=== PATIENT | male | born 1935 | race Asian ===

== ENCOUNTER 2018-11-07 11:22 | Emergency (ER) | payer MEDICARE, OTHER ==
[2018-11-07 16:44] LABS: ADD MAN DIFF? NO
[2018-11-07 16:46] LABS: BASOPHILS % 0.3 % (0.0-2.0); EOSINOPHILS # 0.3 10^3/ul (0.0-0.5); HEMOGLOBIN 9.4 g/dl (14.0-18.0); LYMPHOCYTES # 1.4 10^3/ul (0.8-2.9); LYMPHOCYTES % 21.4 % (15.0-51.0); MEAN CORPUSCULAR HEMOGLOBIN 30.1 pg (29.0-33.0); MEAN CORPUSCULAR HGB CONC 32.4 g/dl (32.0-37.0); MEAN CORPUSCULAR VOLUME 92.9 fl (82.0-101.0); MEAN PLATELET VOLUME 9.3 fl (7.4-10.4); MONOCYTE # 0.4 10^3/ul (0.3-0.9); MONOCYTES % 6.3 % (0.0-11.0); NEUTROPHIL # 4.4 10^3/ul (1.6-7.5); NEUTROPHILS % 67.5 % (39.0-77.0); PLATELET COUNT 172 10^3/UL (140-415); RED BLOOD COUNT 3.12 10^6/ul (4.70-6.10)
[2018-11-07 16:46] LABS: WHITE BLOOD COUNT 6.5 10^3/ul (4.8-10.8)
[2018-11-07 17:05] LABS: ANION GAP 6 (5-13); BLOOD UREA NITROGEN 47 mg/dl (7-20); CALCIUM 8.4 mg/dl (8.4-10.2); CARBON DIOXIDE 20 mmol/L (21-31); CHLORIDE 113 mmol/L (97-110); CREATININE 2.66 mg/dl (0.61-1.24); GLUCOSE 201 mg/dl (70-220); POTASSIUM 4.2 mmol/L (3.5-5.1); SODIUM 139 mmol/L (135-144)
[2018-11-07 17:13] LABS: INR 0.95; PARTIAL THROMBOPLASTIN TIME 30.7 Sec (23.0-35.0); PROTIME 12.8 Sec (11.9-14.9)
[2018-11-07] MEDS: hydrALAzine 20 MG INJ IV (18:51)
[2018-11-07] MEDS: ACETAMINOPHEN 325 MG TAB PO (19:53)
== END 2018-11-07 20:47 | disposition home or self-care (01) ==
LOC: E/R 11:22
DX: S20.212A Contusion of left front wall of thorax, initial encounter (principal); I12.9 Hypertensive chronic kidney disease with stage 1 through stage 4 chronic kidney disease, or unspecified chronic kidney disease; N18.9 Chronic kidney disease, unspecified; E11.22 Type 2 diabetes mellitus with diabetic chronic kidney disease; I16.0 Hypertensive urgency; W01.198A Fall on same level from slipping, tripping and stumbling with subsequent striking against other object, initial encounter; Y92.9 Unspecified place or not applicable; Z79.4 Long term (current) use of insulin
CPT/HCPCS: 36415; 70450; 71045; 80048; 85025; 85610; 85730; 96374; 99285-25

== ENCOUNTER 2018-12-08 18:45 | Inpatient (IN) | payer MEDICARE, OTHER ==
[2018-12-08 19:17] LABS: ADD MAN DIFF? NO
[2018-12-08 19:20] LABS: WHITE BLOOD COUNT 7.2 10^3/ul (4.8-10.8)
[2018-12-08 19:20] LABS: BASOPHILS % 0.3 % (0.0-2.0); EOSINOPHILS # 0.3 10^3/ul (0.0-0.5); EOSINOPHILS % 3.5 % (0.0-7.0); HEMOGLOBIN 8.9 g/dl (14.0-18.0); LYMPHOCYTES # 1.2 10^3/ul (0.8-2.9); MEAN CORPUSCULAR HEMOGLOBIN 30.5 pg (29.0-33.0); MEAN CORPUSCULAR VOLUME 92.5 fl (82.0-101.0); MONOCYTE # 0.4 10^3/ul (0.3-0.9); MONOCYTES % 5.7 % (0.0-11.0); NEUTROPHIL # 5.4 10^3/ul (1.6-7.5); NEUTROPHILS % 74.2 % (39.0-77.0); PLATELET COUNT 145 10^3/UL (140-415); RED BLOOD COUNT 2.92 10^6/ul (4.70-6.10)
[2018-12-08] MEDS: LABETALOL HCL 20MG INJ IV ×2 (19:31→20:13)
[2018-12-08 19:37] LABS: ANION GAP 5 (5-13); BLOOD UREA NITROGEN 48 mg/dl (7-20); CALCIUM 8.6 mg/dl (8.4-10.2); CARBON DIOXIDE 20 mmol/L (21-31); CHLORIDE 111 mmol/L (97-110); CHOL/HDL RATIO 4.5 RATIO; CHOLESTEROL 145 mg/dl (100-200); CREATININE 2.43 mg/dl (0.61-1.24); GLUCOSE 148 mg/dl (70-220); HDL CHOLESTEROL 32 mg/dl (31-75); LDL CHOLESTEROL,CALCULATED 81 mg/dl; POTASSIUM 3.6 mmol/L (3.5-5.1); SODIUM 136 mmol/L (135-144); TRIGLYCERIDES 162 mg/dl (0-149)
[2018-12-08 19:40] LABS: INR 0.91; PROTIME 12.4 Sec (11.9-14.9)
[2018-12-08 19:41] LABS: PARTIAL THROMBOPLASTIN TIME 29.2 Sec (23.0-35.0)
[2018-12-08 19:48] LABS: TROPONIN-I 0.088 ng/ml (0.000-0.120)
[2018-12-08 20:01] LABS: ADD UMIC YES; UR ASCORBIC ACID NEGATIVE (NEGATIVE); UR BACTERIA FEW /HPF (NONE SEEN); UR BILIRUBIN (Dip) NEGATIVE (NEGATIVE); UR BLOOD (Dip) NEGATIVE (NEGATIVE); UR CLARITY CLEAR (CLEAR); UR COLOR STRAW (YELLOW); UR GLUCOSE (Dip) 1+ mg/dL (NEGATIVE); UR KETONES (Dip) NEGATIVE (NEGATIVE); UR LEUKOCYTE ESTERASE (Dip) NEGATIVE Leu/ul (NEGATIVE); UR NITRITE (Dip) NEGATIVE (NEGATIVE); UR RBC 0 /HPF (0-5); UR SPECIFIC GRAVITY (Dip) 1.005 (1.003-1.030); UR TOTAL PROTEIN (Dip) 2+ mg/dl (NEGATIVE); UR UROBILINOGEN (Dip) NEGATIVE (NEGATIVE); UR WBC 3 /HPF (0-5)
[2018-12-08 20:18] LABS: AMPHETAMINE/METHAMPHETAMINE Negative (NEGATIVE); BARBITURATES Negative (NEGATIVE); BENZODIAZEPINES Negative (NEGATIVE); CANNABINOIDS Negative (NEGATIVE); COCAINE Negative (NEGATIVE); OPIATES Negative (NEGATIVE)
[2018-12-08] MEDS ORDERED: ACETAMINOPHEN 325 MG TAB PO (20:30)
[2018-12-08] MEDS ORDERED: ONDANSETRON 4 MG INJ IV (20:30)
[2018-12-08] MEDS: niCARdipine-NS 0.1MG/ML DRIP 200 ML IV (21:14)
[2018-12-09] MEDS ORDERED: MAGNESIUM HYDROXIDE 30ML CUP PO (02:30)
[2018-12-09] MEDS ORDERED: ACETAMINOPHEN 650 MG SUPP PR (02:30)
[2018-12-09] MEDS ORDERED: NACL 0.9% 3 ML SYG IV (02:30)
[2018-12-09] MEDS ORDERED: DOCUSATE SODIUM 100 MG CAP PO (02:30)
[2018-12-09] MEDS: ACETAMINOPHEN 325 MG TAB PO ×2 (03:30→09:00)
[2018-12-09] MEDS: SERTRALINE 50 MG TAB PO (09:51)
[2018-12-09] MEDS: LABETALOL 100 MG TAB PO ×2 (09:52→20:41)
[2018-12-09] MEDS: AMLODIPINE 10 MG TAB PO (09:53)
[2018-12-09] MEDS: HYDROCHLOROTHIAZIDE 25 MG TAB PO (09:53)
[2018-12-09] MEDS ORDERED: FUROSEMIDE 40 MG INJ IV (11:00)
[2018-12-09] MEDS ORDERED: ENOXAPARIN 40 MG/0.4 ML SYG SC (11:00)
[2018-12-09] MEDS ORDERED: HEPARIN 5,000 UNIT/1 ML VIAL SC (11:15)
[2018-12-09] MEDS ORDERED: GLUCOSE GEL 15 GRAM TUBE BUCCAL (12:00)
[2018-12-09] MEDS ORDERED: DEXTROSE 50% 50 ML SYRINGE IV ×2 (12:00)
[2018-12-09] MEDS ORDERED: GLUCAGON 1 MG INJ IM (12:00)
[2018-12-09] MEDS ORDERED: GLUCOSE GEL 15 GRAM TUBE PO ×2 (12:00)
[2018-12-09] MEDS: niCARdipine-NS 0.1MG/ML DRIP 200 ML IV ×2 (12:23→20:26)
[2018-12-09] MEDS: POTASSIUM CHLORIDE 20 MEQ POWDER FOR ORAL SOLN PO ×2 (12:29→20:41)
[2018-12-09] MEDS: INSULIN ASPART [NOVOLOG] 3 ML PEN SC ×3 (12:34→20:31)
[2018-12-09] MEDS: FUROSEMIDE 40 MG INJ IV (17:51)
[2018-12-09] MEDS: ATORVASTATIN 20 MG TAB PO (20:41)
[2018-12-09] MEDS: HEPARIN 5,000 UNIT/1 ML VIAL SC (20:44)
[2018-12-10] MEDS: ACCUCHECK AT 2AM (Patients on SS coverage) XX (02:00)
[2018-12-10 05:01] LABS: ADD MAN DIFF? NO
[2018-12-10 05:15] LABS: WHITE BLOOD COUNT 6.9 10^3/ul (4.8-10.8)
[2018-12-10 05:15] LABS: BASOPHILS % 0.3 % (0.0-2.0); EOSINOPHILS # 0.4 10^3/ul (0.0-0.5); EOSINOPHILS % 6.4 % (0.0-7.0); HEMATOCRIT 24.1 % (37.0-47.0); HEMOGLOBIN 8.1 g/dl (12.0-16.0); LYMPHOCYTES # 1.4 10^3/ul (0.8-2.9); MEAN CORPUSCULAR HEMOGLOBIN 30.5 pg (29.0-33.0); MEAN CORPUSCULAR HGB CONC 33.6 g/dl (32.0-37.0); MEAN CORPUSCULAR VOLUME 90.6 fl (82.0-101.0); MEAN PLATELET VOLUME 10.1 fl (7.4-10.4); MONOCYTE # 0.5 10^3/ul (0.3-0.9); MONOCYTES % 7.4 % (0.0-11.0); NEUTROPHIL # 4.5 10^3/ul (1.6-7.5); NEUTROPHILS % 65.5 % (39.0-77.0); PLATELET COUNT 154 10^3/UL (140-415); RED BLOOD COUNT 2.66 10^6/ul (4.20-5.40)
[2018-12-10] MEDS: FUROSEMIDE 40 MG INJ IV ×2 (05:15→17:43)
[2018-12-10] MEDS: PANTOPRAZOLE (EC) 40 MG TAB PO (05:15)
[2018-12-10 05:40] LABS: B-TYPE NATRIURETIC PEPTIDE 5510 PG/ML (0-450)
[2018-12-10 06:24] LABS: URIC ACID 7.4 mg/dl (3.1-7.9)
[2018-12-10 06:27] LABS: ALANINE AMINOTRANSFERASE 22 IU/L (13-69); ALBUMIN 2.4 g/dl (3.3-4.9); ALBUMIN/GLOBULIN RATIO 0.88; ALKALINE PHOSPHATASE 72 IU/L (42-121); ANION GAP 6 (5-13); ASPARTATE AMINO TRANSFERASE 16 IU/L (15-46); BILIRUBIN,INDIRECT 0.4 mg/dl (0-1.1); BILIRUBIN,TOTAL 0.4 mg/dl (0.2-1.3); BLOOD UREA NITROGEN 48 mg/dl (7-20); CALCIUM 7.7 mg/dl (8.4-10.2); CARBON DIOXIDE 18 mmol/L (21-31); CHLORIDE 113 mmol/L (97-110); CREATININE 2.55 mg/dl (0.44-1.00); GLUCOSE 149 mg/dl (70-220); POTASSIUM 3.4 mmol/L (3.5-5.1); SODIUM 137 mmol/L (135-144); TOTAL PROTEIN 5.1 g/dl (6.1-8.1)
[2018-12-10] MEDS: niCARdipine-NS 0.1MG/ML DRIP 200 ML IV (07:18)
[2018-12-10] MEDS: INSULIN ASPART [NOVOLOG] 3 ML PEN SC ×3 (08:01→17:27)
[2018-12-10] MEDS: POTASSIUM CHLORIDE 20 MEQ POWDER FOR ORAL SOLN PO ×2 (08:53→20:58)
[2018-12-10] MEDS: LABETALOL 100 MG TAB PO ×2 (08:53→21:36)
[2018-12-10] MEDS: AMLODIPINE 10 MG TAB PO (08:53)
[2018-12-10] MEDS: SERTRALINE 50 MG TAB PO (08:54)
[2018-12-10] MEDS: HEPARIN 5,000 UNIT/1 ML VIAL SC ×2 (08:56→22:03)
[2018-12-10] MEDS: ACETAMINOPHEN 325 MG TAB PO (10:40)
[2018-12-10] MEDS: hydrALAzine 20 MG INJ IV ×2 (10:47→20:57)
[2018-12-10 18:33] LABS: COLLECTION PERIOD 24 hrs
[2018-12-10 19:52] LABS: VOLUME 3500 mls
[2018-12-10] MEDS: ATORVASTATIN 20 MG TAB PO (20:58)
[2018-12-11] MEDS: ACCUCHECK AT 2AM (Patients on SS coverage) XX (01:12)
[2018-12-11] MEDS: INSULIN ASPART [NOVOLOG] 3 ML PEN SC ×5 (01:12→22:56)
[2018-12-11] MEDS: FUROSEMIDE 40 MG INJ IV (06:01)
[2018-12-11] MEDS: PANTOPRAZOLE (EC) 40 MG TAB PO (06:01)
[2018-12-11 06:10] LABS: ADD MAN DIFF? NO
[2018-12-11 06:21] LABS: BASOPHILS % 0.1 % (0.0-2.0); EOSINOPHILS # 0.4 10^3/ul (0.0-0.5); HEMATOCRIT 24.7 % (37.0-47.0); HEMOGLOBIN 8.1 g/dl (12.0-16.0); LYMPHOCYTES # 1.2 10^3/ul (0.8-2.9); LYMPHOCYTES % 16.8 % (15.0-51.0); MEAN CORPUSCULAR HEMOGLOBIN 30.2 pg (29.0-33.0); MEAN CORPUSCULAR HGB CONC 32.8 g/dl (32.0-37.0); MEAN CORPUSCULAR VOLUME 92.2 fl (82.0-101.0); MONOCYTE # 0.6 10^3/ul (0.3-0.9); MONOCYTES % 7.4 % (0.0-11.0); NEUTROPHIL # 5.2 10^3/ul (1.6-7.5); NEUTROPHILS % 70.4 % (39.0-77.0); PLATELET COUNT 148 10^3/UL (140-415); RED BLOOD COUNT 2.68 10^6/ul (4.20-5.40); RED CELL DISTRIBUTION WIDTH 14.4 % (11.5-14.5)
[2018-12-11 06:21] LABS: WHITE BLOOD COUNT 7.4 10^3/ul (4.8-10.8)
[2018-12-11 06:55] LABS: ANION GAP 8 (5-13); BLOOD UREA NITROGEN 51 mg/dl (7-20); CARBON DIOXIDE 17 mmol/L (21-31); CHLORIDE 112 mmol/L (97-110); GLUCOSE 137 mg/dl (70-220); POTASSIUM 3.8 mmol/L (3.5-5.1); SODIUM 137 mmol/L (135-144)
[2018-12-11 06:56] LABS: CALCIUM 7.5 mg/dl (8.4-10.2); CREATININE 2.79 mg/dl (0.44-1.00)
[2018-12-11] MEDS: AMLODIPINE 10 MG TAB PO (09:12)
[2018-12-11] MEDS: SERTRALINE 50 MG TAB PO (09:12)
[2018-12-11] MEDS: LABETALOL 100 MG TAB PO ×2 (09:12→22:43)
[2018-12-11] MEDS: POTASSIUM CHLORIDE 20 MEQ POWDER FOR ORAL SOLN PO ×2 (09:12→22:40)
[2018-12-11] MEDS: HEPARIN 5,000 UNIT/1 ML VIAL SC ×2 (09:15→22:56)
[2018-12-11] MEDS: LOSARTAN 50 MG TAB PO (12:02)
[2018-12-11] MEDS: BUMETANIDE 1 MG INJ IV (17:08)
[2018-12-11] MEDS: ATORVASTATIN 20 MG TAB PO (22:40)
[2018-12-12] MEDS: ACCUCHECK AT 2AM (Patients on SS coverage) XX (02:12)
[2018-12-12] MEDS: BUMETANIDE 1 MG INJ IV (05:05)
[2018-12-12] MEDS: ACETAMINOPHEN 325 MG TAB PO (05:05)
[2018-12-12] MEDS: PANTOPRAZOLE (EC) 40 MG TAB PO (05:05)
[2018-12-12 06:20] LABS: ADD MAN DIFF? NO
[2018-12-12 06:30] LABS: BASOPHILS % 0.3 % (0.0-2.0); EOSINOPHILS # 0.4 10^3/ul (0.0-0.5); EOSINOPHILS % 5.4 % (0.0-7.0); HEMOGLOBIN 8.3 g/dl (12.0-16.0); LYMPHOCYTES # 1.1 10^3/ul (0.8-2.9); LYMPHOCYTES % 16.3 % (15.0-51.0); MEAN CORPUSCULAR HGB CONC 33.2 g/dl (32.0-37.0); MEAN CORPUSCULAR VOLUME 93.3 fl (82.0-101.0); MEAN PLATELET VOLUME 10.3 fl (7.4-10.4); MONOCYTE # 0.6 10^3/ul (0.3-0.9); MONOCYTES % 8.2 % (0.0-11.0); NEUTROPHIL # 4.6 10^3/ul (1.6-7.5); NEUTROPHILS % 69.5 % (39.0-77.0); PLATELET COUNT 130 10^3/UL (140-415); RED BLOOD COUNT 2.68 10^6/ul (4.20-5.40); RED CELL DISTRIBUTION WIDTH 14.2 % (11.5-14.5)
[2018-12-12 06:30] LABS: WHITE BLOOD COUNT 6.7 10^3/ul (4.8-10.8)
[2018-12-12 06:51] LABS: ANION GAP 6 (5-13); BLOOD UREA NITROGEN 51 mg/dl (7-20); CALCIUM 7.6 mg/dl (8.4-10.2); CARBON DIOXIDE 20 mmol/L (21-31); CHLORIDE 113 mmol/L (97-110); CREATININE 2.91 mg/dl (0.44-1.00); GLUCOSE 153 mg/dl (70-220); SODIUM 139 mmol/L (135-144)
[2018-12-12] MEDS: INSULIN ASPART [NOVOLOG] 3 ML PEN SC ×4 (08:13→22:04)
[2018-12-12] MEDS: SERTRALINE 50 MG TAB PO (08:38)
[2018-12-12] MEDS: LOSARTAN 50 MG TAB PO (08:38)
[2018-12-12] MEDS: POTASSIUM CHLORIDE 20 MEQ POWDER FOR ORAL SOLN PO ×2 (08:40→21:33)
[2018-12-12] MEDS: LABETALOL 100 MG TAB PO ×2 (08:40→21:33)
[2018-12-12] MEDS: HEPARIN 5,000 UNIT/1 ML VIAL SC ×2 (08:41→22:03)
[2018-12-12] MEDS ORDERED: ENOXAPARIN 30 MG/0.3 ML SYG SC (09:00)
[2018-12-12] MEDS: hydrALAzine 20 MG INJ IV (16:44)
[2018-12-12] MEDS: ATORVASTATIN 20 MG TAB PO (21:32)
[2018-12-12] MEDS: INSULIN GLARGINE [LANTus] (100 UNITS/ML) SYG SC (22:02)
[2018-12-13] MEDS: ACCUCHECK AT 2AM (Patients on SS coverage) XX (02:07)
[2018-12-13] MEDS: PANTOPRAZOLE (EC) 40 MG TAB PO (05:03)
[2018-12-13 06:11] LABS: ADD MAN DIFF? NO
[2018-12-13 06:25] LABS: BASOPHILS % 0.3 % (0.0-2.0); EOSINOPHILS # 0.3 10^3/ul (0.0-0.5); EOSINOPHILS % 5.1 % (0.0-7.0); HEMATOCRIT 25.6 % (37.0-47.0); HEMOGLOBIN 8.3 g/dl (12.0-16.0); LYMPHOCYTES % 15.4 % (15.0-51.0); MEAN CORPUSCULAR HEMOGLOBIN 30.7 pg (29.0-33.0); MEAN CORPUSCULAR HGB CONC 32.4 g/dl (32.0-37.0); MEAN CORPUSCULAR VOLUME 94.8 fl (82.0-101.0); MEAN PLATELET VOLUME 10.4 fl (7.4-10.4); MONOCYTE # 0.5 10^3/ul (0.3-0.9); MONOCYTES % 7.8 % (0.0-11.0); NEUTROPHIL # 4.6 10^3/ul (1.6-7.5); NEUTROPHILS % 70.9 % (39.0-77.0); PLATELET COUNT 138 10^3/UL (140-415); RED CELL DISTRIBUTION WIDTH 14.5 % (11.5-14.5)
[2018-12-13 06:25] LABS: WHITE BLOOD COUNT 6.5 10^3/ul (4.8-10.8)
[2018-12-13 07:09] LABS: ANION GAP 7 (5-13); BLOOD UREA NITROGEN 50 mg/dl (7-20); CALCIUM 7.2 mg/dl (8.4-10.2); CARBON DIOXIDE 19 mmol/L (21-31); CHLORIDE 113 mmol/L (97-110); CREATININE 2.68 mg/dl (0.44-1.00); GLUCOSE 128 mg/dl (70-220); POTASSIUM 4.2 mmol/L (3.5-5.1); SODIUM 139 mmol/L (135-144)
[2018-12-13 07:18] LABS: PHOSPHORUS 4.4 mg/dl (2.5-4.9)
[2018-12-13 07:18] LABS: MAGNESIUM 1.9 mg/dl (1.7-2.5)
[2018-12-13] MEDS: INSULIN ASPART [NOVOLOG] 3 ML PEN SC ×3 (07:40→17:28)
[2018-12-13] MEDS: LOSARTAN 50 MG TAB PO (07:41)
[2018-12-13] MEDS: LABETALOL 100 MG TAB PO (07:41)
[2018-12-13] MEDS: POTASSIUM CHLORIDE 20 MEQ POWDER FOR ORAL SOLN PO (08:01)
[2018-12-13] MEDS: BUMETANIDE 1 MG INJ IV (08:10)
[2018-12-13] MEDS: HEPARIN 5,000 UNIT/1 ML VIAL SC (08:12)
[2018-12-13] MEDS: SERTRALINE 50 MG TAB PO (09:42)
[2018-12-13] MEDS: ISOSORBIDE DINITRATE 20 MG TAB PO ×2 (10:26→12:48)
[2018-12-13] MEDS: ACETAMINOPHEN 325 MG TAB PO (17:36)
== END 2018-12-13 20:42 | DRG 305 ==
LOC: ICU 12-09 03:43 → E/R 18:45 → ICU 20:29 → TEL 12-10 19:12
PROVIDERS: Internal Medicine Nephrology
DX: I16.1 Hypertensive emergency (principal); I50.30 Unspecified diastolic (congestive) heart failure; N17.9 Acute kidney failure, unspecified; I82.611 Acute embolism and thrombosis of superficial veins of right upper extremity; I13.0 Hypertensive heart and chronic kidney disease with heart failure and stage 1 through stage 4 chronic kidney disease, or unspecified chronic kidney disease; N18.3 Chronic kidney disease, stage 3 (moderate); E11.22 Type 2 diabetes mellitus with diabetic chronic kidney disease; E78.5 Hyperlipidemia, unspecified; F03.90 Unspecified dementia, unspecified severity, without behavioral disturbance, psychotic disturbance, mood disturbance, and anxiety; E66.3 Overweight; Z96.653 Presence of artificial knee joint, bilateral; Z98.1 Arthrodesis status; I16.0 Hypertensive urgency; F99 Mental disorder, not otherwise specified; H40.9 Unspecified glaucoma; D64.9 Anemia, unspecified; N26.1 Atrophy of kidney (terminal); E11.21 Type 2 diabetes mellitus with diabetic nephropathy; Z79.4 Long term (current) use of insulin; Z90.49 Acquired absence of other specified parts of digestive tract
CPT/HCPCS: 36415; 70450; 71045; 76775; 80048; 80053; 80061; 80307; 81001; 82962; 83036; 83735; 83880; 84100; 84156; 84484; 84560; 85025; 85610; 85730; 93005; 93306; 93880; 93971; 96374; 97116; 97162; 97530; 99285-25

== ENCOUNTER 2018-12-13 21:45 | Inpatient (IN) | payer MEDICARE, OTHER ==
[2018-12-13] MEDS ORDERED: LACTULOSE 30ML CUP PO (23:00)
[2018-12-13] MEDS ORDERED: BISACODYL 10 MG SUPP PR (23:00)
[2018-12-13] MEDS ORDERED: ACETAMINOPHEN 325 MG TAB PO (23:00)
[2018-12-13] MEDS ORDERED: MAGNESIUM HYDROXIDE 30ML CUP PO (23:00)
[2018-12-13] MEDS ORDERED: ACETAMINOPHEN 650 MG SUPP PR (23:30)
[2018-12-13] MEDS ORDERED: hydrALAzine 20 MG INJ IV (23:30)
[2018-12-14] MEDS: ATORVASTATIN 20 MG TAB PO ×2 (00:59→21:01)
[2018-12-14] MEDS: ISOSORBIDE DINITRATE 20 MG TAB PO ×4 (01:00→21:01)
[2018-12-14] MEDS: LABETALOL 100 MG TAB PO ×3 (01:00→21:00)
[2018-12-14] MEDS: INSULIN GLARGINE [LANTus] (100 UNITS/ML) SYG SC ×2 (01:01→21:31)
[2018-12-14] MEDS: DOCUSATE SODIUM 100 MG CAP PO ×3 (01:09→21:00)
[2018-12-14] MEDS: SENNA TAB PO ×2 (01:09→21:02)
[2018-12-14] MEDS: POTASSIUM CHLORIDE 20 MEQ POWDER FOR ORAL SOLN PO ×3 (01:11→21:02)
[2018-12-14] MEDS: HEPARIN 5,000 UNIT/1 ML VIAL SC ×2 (01:19→08:56)
[2018-12-14] MEDS ORDERED: DEXTROSE 50% 50 ML SYRINGE IV ×2 (01:30)
[2018-12-14] MEDS ORDERED: GLUCOSE GEL 15 GRAM TUBE BUCCAL (01:30)
[2018-12-14] MEDS ORDERED: GLUCAGON 1 MG INJ IM (01:30)
[2018-12-14] MEDS ORDERED: GLUCOSE GEL 15 GRAM TUBE PO ×2 (01:30)
[2018-12-14 04:48] LABS: ADD UMIC YES; UR ASCORBIC ACID 20 mg/dL (NEGATIVE); UR BACTERIA MANY /HPF (NONE SEEN); UR BILIRUBIN (Dip) NEGATIVE (NEGATIVE); UR BLOOD (Dip) NEGATIVE (NEGATIVE); UR CLARITY CLOUDY (CLEAR); UR COLOR YELLOW (YELLOW); UR GLUCOSE (Dip) NEGATIVE (NEGATIVE); UR KETONES (Dip) NEGATIVE (NEGATIVE); UR LEUKOCYTE ESTERASE (Dip) 1+ Leu/ul (NEGATIVE); UR NITRITE (Dip) NEGATIVE (NEGATIVE); UR RBC 0 /HPF (0-5); UR SPECIFIC GRAVITY (Dip) 1.013 (1.003-1.030); UR SQUAMOUS EPITHELIAL CELL FEW /HPF (FEW); UR TOTAL PROTEIN (Dip) 3+ mg/dl (NEGATIVE); UR UROBILINOGEN (Dip) NEGATIVE (NEGATIVE); UR WBC > 182 /HPF (0-5)
[2018-12-14 06:22] LABS: ADD MAN DIFF? NO
[2018-12-14 06:27] LABS: BASOPHILS % 0.6 % (0.0-2.0); EOSINOPHILS # 0.3 10^3/ul (0.0-0.5); EOSINOPHILS % 5.8 % (0.0-7.0); HEMATOCRIT 24.7 % (37.0-47.0); HEMOGLOBIN 7.8 g/dl (12.0-16.0); LYMPHOCYTES # 0.9 10^3/ul (0.8-2.9); MEAN CORPUSCULAR HEMOGLOBIN 30.5 pg (29.0-33.0); MEAN CORPUSCULAR HGB CONC 31.6 g/dl (32.0-37.0); MEAN CORPUSCULAR VOLUME 96.5 fl (82.0-101.0); MEAN PLATELET VOLUME 10.4 fl (7.4-10.4); MONOCYTE # 0.5 10^3/ul (0.3-0.9); MONOCYTES % 8.6 % (0.0-11.0); NEUTROPHIL # 3.5 10^3/ul (1.6-7.5); NEUTROPHILS % 66.6 % (39.0-77.0); PLATELET COUNT 134 10^3/UL (140-415); RED BLOOD COUNT 2.56 10^6/ul (4.20-5.40); RED CELL DISTRIBUTION WIDTH 14.2 % (11.5-14.5)
[2018-12-14 06:27] LABS: WHITE BLOOD COUNT 5.2 10^3/ul (4.8-10.8)
[2018-12-14] MEDS: PANTOPRAZOLE (EC) 40 MG TAB PO (06:35)
[2018-12-14 06:54] LABS: ALANINE AMINOTRANSFERASE 22 IU/L (13-69); ALBUMIN 2.2 g/dl (3.3-4.9); ALBUMIN/GLOBULIN RATIO 0.81; ALKALINE PHOSPHATASE 82 IU/L (42-121); ANION GAP 10 (5-13); ASPARTATE AMINO TRANSFERASE 26 IU/L (15-46); BILIRUBIN,INDIRECT 0.3 mg/dl (0-1.1); BILIRUBIN,TOTAL 0.3 mg/dl (0.2-1.3); BLOOD UREA NITROGEN 52 mg/dl (7-20); CALCIUM 7.8 mg/dl (8.4-10.2); CARBON DIOXIDE 18 mmol/L (21-31); CHLORIDE 115 mmol/L (97-110); CREATININE 2.54 mg/dl (0.44-1.00); GLUCOSE 111 mg/dl (70-220); SODIUM 143 mmol/L (135-144); TOTAL PROTEIN 4.9 g/dl (6.1-8.1)
[2018-12-14] MEDS ORDERED: PENDING SANTYL ORDER FOR WOUND CARE XX (07:30)
[2018-12-14] MEDS: INSULIN ASPART [NOVOLOG] 3 ML PEN SC ×4 (07:35→21:00)
[2018-12-14] MEDS: LOSARTAN 50 MG TAB PO (08:49)
[2018-12-14] MEDS: SERTRALINE 50 MG TAB PO (08:50)
[2018-12-14] MEDS: BUMETANIDE 1 MG TAB PO (08:50)
[2018-12-14] MEDS: EPOETIN ALFA-EPBX (ESRD) 4,000 UNIT/ML VIAL SC (16:55)
[2018-12-14] MEDS: CEFTRIAXONE 1 GM/50 ML (PMX) 50 ML IVPB (16:56)
[2018-12-15] MEDS: PANTOPRAZOLE (EC) 40 MG TAB PO (07:28)
[2018-12-15] MEDS: INSULIN ASPART [NOVOLOG] 3 ML PEN SC (07:35)
[2018-12-15] MEDS: ISOSORBIDE DINITRATE 20 MG TAB PO (08:22)
[2018-12-15] MEDS: LOSARTAN 50 MG TAB PO (08:23)
[2018-12-15] MEDS: BUMETANIDE 1 MG TAB PO (08:23)
[2018-12-15] MEDS: SERTRALINE 50 MG TAB PO (08:23)
[2018-12-15] MEDS: DOCUSATE SODIUM 100 MG CAP PO (08:23)
[2018-12-15] MEDS: LABETALOL 100 MG TAB PO (08:24)
[2018-12-15] MEDS: POTASSIUM CHLORIDE 20 MEQ POWDER FOR ORAL SOLN PO (08:25)
== END 2018-12-15 11:58 | DRG 948 ==
LOC: VRC 21:45
DX: R53.81 Other malaise (principal); I13.0 Hypertensive heart and chronic kidney disease with heart failure and stage 1 through stage 4 chronic kidney disease, or unspecified chronic kidney disease; I50.30 Unspecified diastolic (congestive) heart failure; I82.619 Acute embolism and thrombosis of superficial veins of unspecified upper extremity; I31.3 Pericardial effusion (noninflammatory); R13.10 Dysphagia, unspecified; E78.5 Hyperlipidemia, unspecified; E11.22 Type 2 diabetes mellitus with diabetic chronic kidney disease; I25.2 Old myocardial infarction; Z98.890 Other specified postprocedural states; I16.0 Hypertensive urgency; N18.3 Chronic kidney disease, stage 3 (moderate); N18.9 Chronic kidney disease, unspecified; F03.90 Unspecified dementia, unspecified severity, without behavioral disturbance, psychotic disturbance, mood disturbance, and anxiety; E66.3 Overweight; Z68.28 Body mass index [BMI] 28.0-28.9, adult; D63.1 Anemia in chronic kidney disease; I70.90 Unspecified atherosclerosis; H40.9 Unspecified glaucoma
CPT/HCPCS: 80053; 81001; 82962; 85025; 87081; 87086; 97116; 97163; 97530; 97535